=== PATIENT | male | born 1955 | race Caucasian/White ===

== ENCOUNTER 2019-07-23 05:42 | Outpatient (CLI) | payer OTHER ==
[2019-07-23 10:56] LABS: Hemoglobin 14.7 g/dL (14.0-18.0); Mean Corpuscular HGB CONC 33.6 g/dL (32.0-36.0); Mean Corpuscular Volume 95.2 fL (78.0-98.0); Mean Platelet Volume 8.8 fL (7.4-10.4); Platelet Count 256 thou/uL (130-400); RBC Distribution Width 11.9 % (11.5-14.5); Red Blood Cell (RBC) Count 4.58 mill/uL (4.70-6.10)
[2019-07-23 11:15] LABS: ALT (SGPT) 55 U/L (8-55); AST (SGOT) 38 U/L (5-34); Albumin 4.5 g/dL (3.4-4.8); Alkaline Phosphatase 98 U/L (40-110); Anion Gap 11 mmol/L (10-20); BUN (Urea Nitrogen) 9 mg/dL (8.4-25.7); Bilirubin, Total 0.8 mg/dL (0.2-1.2); Calc. Creatinine Clearance 0 mL/min (70-130); Calcium 9.4 mg/dL (7.8-10.44); Carbon Dioxide 28 mmol/L (23-31); Chloride 102 mmol/L (98-107); Estimated GFR-MDRD Greater than 90; Globulin 2.9 g/dL (2.4-3.5); Glucose 79 mg/dL (80-115); Protein, Total 7.4 g/dL (5.8-8.1); Sodium 137 mmol/L (136-145)
--- NOTE | 2019-07-23 16:27 | EKG ---
Test Reason : Blood Pressure : / mmHG Vent. Rate : 060 BPM Atrial Rate : 060 BPM P-R Int : 188 ms QRS Dur : 090 ms QT Int : 410 ms P-R-T Axes : 029 076 025 degrees QTc Int : 410 ms Normal sinus rhythm Normal ECG No previous ECGs available Confirmed by DR. Kaleb ROJAS ([id number]) on 07/23/2019 4:27:18 PM Referred By: [email or web address] Confirmed By:DR. Kaleb ROJAS
== END 2019-07-23 05:43 | disposition home or self-care (01) ==
LOC: LABBT 05:42
PROVIDERS: ATTEND Surgery
DX: Z01.818 Encounter for other preprocedural examination (principal); K42.9 Umbilical hernia without obstruction or gangrene
CPT/HCPCS: 80053; 85027; 93005; 93010

== ENCOUNTER 2019-07-31 07:45 | Day surgery (SDC) | payer OTHER ==
[2019-07-23 08:21] VITALS: BMI 33.0
[2019-07-31] MEDS ORDERED: Bupivacaine HCl 0.5%/Epinephrine 1:200,000/PF 30 ml Vial ONE (09:31)
[2019-07-31] MEDS ORDERED: Fentanyl 100 MCG/2 ML VIAL ONE (09:51)
--- NOTE | 2019-07-31 10:21 | HP ---
CHIEF COMPLAINT: Umbilical hernia. HISTORY OF PRESENT ILLNESS: The patient is a 64-year-old male, who has a 1-year history of reducible umbilical hernia that seems to be enlarging. PAST MEDICAL HISTORY: Significant for basal cell carcinoma, ear infections, hearing loss, colon polyps, obesity, lumbar radiculopathy, hyperlipidemia. PAST SURGICAL HISTORY: He has had a tonsillectomy in 66, knee surgery in 79, third molar extraction. MEDICATIONS: 1. Nasonex. 2. Loratadine. 3. Atorvastatin. FAMILY HISTORY: Both parents . SOCIAL HISTORY: He is a world geography teacher. . No alcohol. No drugs. No tobacco. PHYSICAL EXAMINATION: VITAL SIGNS: Height 73, weight 249, body mass index 32.8. GENERAL: Well-developed, well-nourished male, in no apparent distress. HEENT: Unremarkable. LUNGS: Clear. HEART: Regular rate and rhythm. ABDOMEN: There is 1 cm umbilical hernia which is reducible. EXTREMITIES: Good pulses. No pedal edema. ASSESSMENT: Umbilical hernia. PLAN: Umbilical hernia repair with possible mesh. CONSENT: I have discussed planned procedure as well as risk of bleeding, infection, injury to bowel, recurrence of hernia. He understands and gives informed consent. Job ID: [id number]
[2019-07-31] MEDS ORDERED: Glycopyrrolate 0.2 MG/ML 5 ML SYRINGE ONE (10:53)
[2019-07-31] MEDS ORDERED: Dexamethasone 20 MG/5 ML VIAL ONE (10:53)
[2019-07-31] MEDS ORDERED: Ondansetron PF 4 MG/2 ML Vial ONE (10:53)
[2019-07-31] MEDS ORDERED: Rocuronium Bromide 10 MG/ML (10ML VIAL) ONE (10:53)
[2019-07-31] MEDS ORDERED: PROPOFOL 200 MG/20 ML VIAL ONE (10:53)
[2019-07-31] MEDS ORDERED: Ketorolac Tromethamine 30 MG/ML VIAL ONE (10:53)
--- NOTE | 2019-07-31 12:04 | OP ---
DATE OF PROCEDURE: 07/31/2019 PREOPERATIVE DIAGNOSIS: Umbilical hernia. PROCEDURE PERFORMED: Umbilical hernia repair. INDICATIONS: A 64-year-old male with a painful umbilical hernia. FINDINGS: Very small hernia defect of 4 mm. Mesh was not used. DESCRIPTION OF PROCEDURE: After informed consent was obtained, patient was taken to the operating room, given general endotracheal anesthesia and placed in a supine position. Abdomen was prepped and draped in usual fashion. Local anesthesia infiltrated subcutaneously and deep. A subumbilical incision was performed. Subcu divided sharply. The skin of the umbilicus was sharply dissected off the hernia sac with Metzenbaum scissors. Then, this hernia sac was dissected circumferentially down to the fascia and excised with electrocautery. Hemostasis achieved. Then, the defect was closed with a [id number] of 0 Ethibond. Again, hemostasis assured. The base of the umbilicus was sutured to the fascia with interrupted 3-0 Vicryl to restore umbilical contour. Subcu closed with interrupted 3-0 Vicryl and skin closed with interrupted 4-0 Rapide. Steri-Strips applied. Sterile bandage applied. The patient tolerated the procedure well, transferred to Recovery in good condition. Sponge and needle count verified correct x2. Job ID: [id number]
== END 2019-07-31 12:15 | disposition home or self-care (01) ==
LOC: SDC 07:45
PROVIDERS: ATTEND Surgery
PROC: 0WQF0ZZ Repair Abdominal Wall, Open Approach (ICD-10-PCS; principal; 2019-07-31)
DX: K42.9 Umbilical hernia without obstruction or gangrene (principal); E78.5 Hyperlipidemia, unspecified; E66.9 Obesity, unspecified; Z68.33 Body mass index [BMI] 33.0-33.9, adult; Z79.899 Other long term (current) drug therapy
CPT/HCPCS: J0670; J0690; J1100; J1885; J2405; J2704; J3010